=== PATIENT | male | born 1960 | race Hispanic/Latino ===

== ENCOUNTER 2017-11-26 14:25 | Inpatient (IN) | payer BC, MEDICAID, OTHER ==
[~2017-11-26] VITALS: Ht 170.2 cm; Wt 31.9 kg
[2017-11-26 15:36] LABS: BASOPHILS % (AUTO) 0.4 % (0.0-5.0); EOSINOPHILS % (AUTO) 0.7 % (0.0-8.0); HEMATOCRIT 41.2 % (42-54); LYMPHOCYTES % (AUTO) 15.8 % (21.0-51.0); MEAN CORPUSCULAR HEMOGLOBIN 30.4 pg (27.0-33.0); MEAN CORPUSCULAR HGB CONC 34.2 g/dL (32.0-36.0); MEAN CORPUSCULAR VOLUME 88.9 fL (79-99); MONOCYTES % (AUTO) 7.4 % (3.0-13.0); NEUTROPHILS % (AUTO) 75.7 % (40.0-77.0); PLATELET COUNT (AUTO) 423 K/uL (130-400); RED BLOOD CELL COUNT(AUTO) 4.64 MIL/uL (4.50-6.20); RED CELL DISTRIBUTION WIDTH 13.8 % (11.0-15.5); WHITE BLOOD COUNT (AUTO) 12.3 K/uL (4.8-10.8)
[2017-11-26 15:48] LABS: CREATININE 0.7 mg/dL (0.5-1.5); POTASSIUM 3.2 mmol/L (3.5-5.1)
[2017-11-26 15:53] LABS: ALBUMIN 3.3 g/dL (3.5-5.0); BILIRUBIN,TOTAL 0.8 mg/dL (0.2-1.0); INR 1.02 (0.85-1.15); PARTIAL THROMBOPLASTIN TIME 33.6 SEC (26.3-35.5); PROTHROMBIN TIME 10.7 SEC (9.6-11.6); TOTAL PROTEIN, SERUM 8.1 g/dL (6.0-8.3)
[2017-11-26] MEDS ORDERED: SODIUM CHLORIDE 0.9% 1000ML 1,000 ML IV ONE (16:06)
[2017-11-26] MEDS ORDERED: ISOVUE-370 50ML VIAL IV ONE (16:50)
[2017-11-26] MEDS ORDERED: AZITHROMYCIN 500MG+NS 250ML 250 ML IV ONE (16:53)
[2017-11-26] MEDS ORDERED: CEFTRIAXONE SODIUM 1 GM ONE (16:53)
[2017-11-26] MEDS ORDERED: IPRATROPIUM/ALBUTEROL SULFATE 3 ML SOLUTION IH ONE (16:58)
[2017-11-26 21:00] VITALS: BP 137/78
[2017-11-26] MEDS: IPRATROPIUM/ALBUTEROL SULFATE 3 ML SOLUTION IH SCH (23:20)
[2017-11-27] VITALS: BP 131/78
[2017-11-27] MEDS ORDERED: ACETAMINOPHEN 325 MG TAB PO PRN (02:00)
[2017-11-27] MEDS ORDERED: ONDANSETRON HCL 4 MG/2 ML VIAL IV PRN (02:00)
[2017-11-27] MEDS ORDERED: LIDOCAINE HCL-MPF 1% 2ML VIAL IVP PRN (02:15)
[2017-11-27] MEDS ORDERED: POTASSIUM CHLORIDE 20MEQ/100ML 100 ML IV PRN (02:15)
[2017-11-27] MEDS ORDERED: POTASSIUM CHLORIDE 10% ELIXIR 20 MEQ/15 ML UDCUP PO PRN (02:15)
[2017-11-27 04:00] VITALS: BP 127/77
[2017-11-27 04:56] LABS: HEMATOCRIT 36.5 % (42-54); MEAN CORPUSCULAR HEMOGLOBIN 31.1 pg (27.0-33.0); MEAN CORPUSCULAR VOLUME 88.9 fL (79-99); PLATELET COUNT (AUTO) 386 K/uL (130-400); RED BLOOD CELL COUNT(AUTO) 4.11 MIL/uL (4.50-6.20); RED CELL DISTRIBUTION WIDTH 13.5 % (11.0-15.5); WHITE BLOOD COUNT (AUTO) 11.9 K/uL (4.8-10.8)
[2017-11-27 05:10] LABS: CREATININE 0.7 mg/dL (0.5-1.5); POTASSIUM 3.3 mmol/L (3.5-5.1)
[2017-11-27 05:22] LABS: EOSINOPHILS % (MANUAL) 1 % (1-6); LYMPHOCYTES % (MANUAL) 18 % (22-44); MAN.DIFF COMMENT-IMPRESSION MANUAL DIFFERENTIAL; MONOCYTES % (MANUAL) 2 % (2-9); PLATELET MORPHOLOGY COMMENT ADEQUATE; SEGMENTED NEUTROPHILS % 79 % (40-70)
[2017-11-27] MEDS: POTASSIUM CHLORIDE 20 MEQ ERTAB PO PRN ×3 (05:59→14:33)
[2017-11-27] MEDS: IPRATROPIUM/ALBUTEROL SULFATE 3 ML SOLUTION IH SCH ×3 (06:06→18:31)
[2017-11-27 07:30] VITALS: BP 137/82
[2017-11-27] MEDS: FAMOTIDINE 20MG TAB 20 MG TAB PO SCH ×2 (09:33→20:42)
[2017-11-27] MEDS: PREDNISONE 20 MG TABLET PO SCH (09:36)
[2017-11-27 11:00] VITALS: BP 135/77
[2017-11-27] MEDS: NICOTINE 14 MG/ 24 HR PATCH TD SCH (14:33)
[2017-11-27 16:00] VITALS: BP 127/75
[2017-11-27] MEDS: CEFTRIAXONE SODIUM 1 GM IVP SCH (17:02)
[2017-11-27] MEDS: AZITHROMYCIN 500MG+NS 250ML 250 ML IV SCH (17:03)
[2017-11-27 20:31] VITALS: BP 110/63
[2017-11-27] MEDS ORDERED: ZOLPIDEM TARTRATE 5 MG TAB ONE (20:41)
[2017-11-28 00:05] VITALS: BP 114/73
[2017-11-28] MEDS: IPRATROPIUM/ALBUTEROL SULFATE 3 ML SOLUTION IH SCH ×4 (00:56→16:58)
[2017-11-28 04:37] VITALS: BP 112/77
[2017-11-28] MEDS: POTASSIUM CHLORIDE 20 MEQ ERTAB PO PRN ×3 (05:33→16:44)
[2017-11-28 07:46] VITALS: BP 114/75
[2017-11-28] MEDS: FAMOTIDINE 20MG TAB 20 MG TAB PO SCH ×2 (08:06→19:35)
[2017-11-28] MEDS: PREDNISONE 20 MG TABLET PO SCH (08:07)
[2017-11-28] MEDS: NICOTINE 14 MG/ 24 HR PATCH TD SCH (09:12)
[2017-11-28 12:00] VITALS: BP 135/78
[2017-11-28 16:00] VITALS: BP 119/73
[2017-11-28] MEDS: AZITHROMYCIN 500MG+NS 250ML 250 ML IV SCH (16:43)
[2017-11-28] MEDS: CEFTRIAXONE SODIUM 1 GM IVP SCH (16:44)
[2017-11-28 20:34] VITALS: BP 113/70
[2017-11-28] MEDS: ZOLPIDEM TARTRATE 5 MG TAB PO PRN (20:54)
[2017-11-28] MEDS: BUDESONIDE 0.5 MG/2 ML INH IH SCH (22:09)
[2017-11-29] VITALS (7 sets, daily range): BP systolic 98–129; BP diastolic 58–81
[2017-11-29] MEDS: IPRATROPIUM/ALBUTEROL SULFATE 3 ML SOLUTION IH SCH ×5 (00:04→23:00)
[2017-11-29 05:10] LABS: HEMATOCRIT 34.8 % (42-54); MEAN CORPUSCULAR HEMOGLOBIN 30.9 pg (27.0-33.0); MEAN CORPUSCULAR HGB CONC 34.6 g/dL (32.0-36.0); MEAN CORPUSCULAR VOLUME 89.3 fL (79-99); PLATELET COUNT (AUTO) 434 K/uL (130-400); RED CELL DISTRIBUTION WIDTH 13.7 % (11.0-15.5)
[2017-11-29] MEDS: BUDESONIDE 0.5 MG/2 ML INH IH SCH ×2 (05:22→17:59)
[2017-11-29 05:26] LABS: CREATININE 0.8 mg/dL (0.5-1.5); PHOSPHORUS 3.7 mg/dL (2.5-4.9); POTASSIUM 4.1 mmol/L (3.5-5.1)
[2017-11-29] MEDS: PREDNISONE 20 MG TABLET PO SCH (08:25)
[2017-11-29] MEDS: FAMOTIDINE 20MG TAB 20 MG TAB PO SCH ×2 (08:25→21:31)
[2017-11-29] MEDS: NICOTINE 14 MG/ 24 HR PATCH TD SCH (08:25)
[2017-11-29] MEDS ORDERED: MAGNESIUM 2GM PREMIX 50ML 50 ML IV SCH (14:00)
[2017-11-29] MEDS: CEFTRIAXONE SODIUM 1 GM IVP SCH (17:13)
[2017-11-29] MEDS: AZITHROMYCIN 500MG+NS 250ML 250 ML IV SCH (17:13)
[2017-11-29] MEDS: ZOLPIDEM TARTRATE 5 MG TAB PO PRN (21:31)
[2017-11-30] VITALS (14 sets, daily range): BP systolic 106–141; BP diastolic 65–96
[2017-11-30] MEDS: IPRATROPIUM/ALBUTEROL SULFATE 3 ML SOLUTION IH SCH ×3 (05:52→19:23)
[2017-11-30] MEDS: BUDESONIDE 0.5 MG/2 ML INH IH SCH ×2 (06:04→19:40)
[2017-11-30 07:51] LABS: BASOPHILS % (AUTO) 0.7 % (0.0-5.0); EOSINOPHILS % (AUTO) 0.4 % (0.0-8.0); HEMATOCRIT 36.4 % (42-54); LYMPHOCYTES % (AUTO) 21.4 % (21.0-51.0); MEAN CORPUSCULAR HGB CONC 34.6 g/dL (32.0-36.0); MEAN CORPUSCULAR VOLUME 89.5 fL (79-99); MONOCYTES % (AUTO) 7.1 % (3.0-13.0); NEUTROPHILS % (AUTO) 70.4 % (40.0-77.0); PLATELET COUNT (AUTO) 446 K/uL (130-400); RED BLOOD CELL COUNT(AUTO) 4.07 MIL/uL (4.50-6.20); RED CELL DISTRIBUTION WIDTH 13.8 % (11.0-15.5); WHITE BLOOD COUNT (AUTO) 15.8 K/uL (4.8-10.8)
[2017-11-30 08:04] LABS: INR 1.03 (0.85-1.15); PARTIAL THROMBOPLASTIN TIME 28.8 SEC (26.3-35.5); PROTHROMBIN TIME 10.8 SEC (9.6-11.6)
[2017-11-30 08:59] LABS: ALBUMIN 2.8 g/dL (3.5-5.0); BILIRUBIN,TOTAL 0.9 mg/dL (0.2-1.0); CREATININE 0.7 mg/dL (0.5-1.5); MAGNESIUM 2.1 mg/dL (1.80-2.40); POTASSIUM 3.5 mmol/L (3.5-5.1); TOTAL PROTEIN, SERUM 7.4 g/dL (6.0-8.3)
[2017-11-30] MEDS: PREDNISONE 20 MG TABLET PO SCH (10:06)
[2017-11-30] MEDS: FAMOTIDINE 20MG TAB 20 MG TAB PO SCH ×2 (10:06→20:13)
[2017-11-30] MEDS: NICOTINE 14 MG/ 24 HR PATCH TD SCH (10:07)
[2017-11-30] MEDS ORDERED: FENTANYL CITRATE PF 50 MCG/1 ML 2ML VIAL ONE (11:11)
[2017-11-30] MEDS ORDERED: MIDAZOLAM HCL 1 MG/ML 2ML VIAL ONE (11:11)
[2017-11-30] MEDS: CEFTRIAXONE SODIUM 1 GM IVP SCH (15:57)
[2017-11-30] MEDS: AZITHROMYCIN 500MG+NS 250ML 250 ML IV SCH (15:57)
[2017-11-30] MEDS: ZOLPIDEM TARTRATE 5 MG TAB PO PRN (20:15)
[2017-12-01] MEDS: IPRATROPIUM/ALBUTEROL SULFATE 3 ML SOLUTION IH SCH ×3 (00:09→10:52)
[2017-12-01 04:05] VITALS: BP 116/74
[2017-12-01 04:49] LABS: MEAN CORPUSCULAR HEMOGLOBIN 31.2 pg (27.0-33.0); MEAN CORPUSCULAR HGB CONC 34.6 g/dL (32.0-36.0); MEAN CORPUSCULAR VOLUME 90.1 fL (79-99); PLATELET COUNT (AUTO) 462 K/uL (130-400); RED BLOOD CELL COUNT(AUTO) 3.89 MIL/uL (4.50-6.20); RED CELL DISTRIBUTION WIDTH 13.9 % (11.0-15.5); WHITE BLOOD COUNT (AUTO) 16.8 K/uL (4.8-10.8)
[2017-12-01 05:01] LABS: CREATININE 0.8 mg/dL (0.5-1.5)
[2017-12-01 07:00] VITALS: BP 124/77
[2017-12-01] MEDS: BUDESONIDE 0.5 MG/2 ML INH IH SCH (07:12)
[2017-12-01] MEDS: FAMOTIDINE 20MG TAB 20 MG TAB PO SCH (10:31)
[2017-12-01] MEDS: NICOTINE 14 MG/ 24 HR PATCH TD SCH (10:33)
[2017-12-01] MEDS: PREDNISONE 20 MG TABLET PO SCH (10:41)
[2017-12-01 12:00] VITALS: BP_SYST 122; BP_SYST 172; BP_DIAS 75; BP_DIAS 88
[2017-12-01] MEDS ORDERED: BUDE0.5A3 IH (13:16)
[2017-12-01] MEDS ORDERED: LEVO500T2 PO (13:16)
[2017-12-01] MEDS ORDERED: ALBU8.5H8 IH (15:21)
[2017-12-01] MEDS ORDERED: TIOT18CA3 IH (15:21)
[2017-12-01] MEDS: CEFTRIAXONE SODIUM 1 GM IVP SCH (16:56)
[2017-12-01] MEDS: AZITHROMYCIN 500MG+NS 250ML 250 ML IV SCH (16:57)
== END 2017-12-01 17:10 | disposition home or self-care (01) | DRG 180 ==
LOC: EDH 14:25 → EDHIP 14:26 → 4AH 20:52 → 3DH 11-29 15:26 → 3AH 11-29 15:49
PROVIDERS: ADMIT Family Medicine; ATTEND Family Medicine
PROC: 0BBK3ZX Excision of Right Lung, Percutaneous Approach, Diagnostic (ICD-10-PCS; principal; 2017-11-26)
DX: C34.11 Malignant neoplasm of upper lobe, right bronchus or lung (principal); J18.9 Pneumonia, unspecified organism; J44.0 Chronic obstructive pulmonary disease with (acute) lower respiratory infection; R04.2 Hemoptysis; J44.1 Chronic obstructive pulmonary disease with (acute) exacerbation; D72.829 Elevated white blood cell count, unspecified; E87.6 Hypokalemia; J44.9 Chronic obstructive pulmonary disease, unspecified; F10.20 Alcohol dependence, uncomplicated; F17.210 Nicotine dependence, cigarettes, uncomplicated; Z88.0 Allergy status to penicillin; Z93.3 Colostomy status; Z28.21 Immunization not carried out because of patient refusal
CPT/HCPCS: 32405; 36415; 71045; 71046; 71260; 77012; 80048; 80053; 82948; 83605; 83735; 84100; 84132; 85025; 85027; 85610; 85730; 86480; 87040; 87804; 88305; 94640; 94664; 94760; A4218; J0456; J0696; J2250; J3010; J3475; J7030; Q9967

== ENCOUNTER 2017-12-21 08:27 | Observation (INO) | payer MEDICAID, OTHER ==
[2017-12-21] VITALS (9 sets, daily range): BP systolic 119–155; BP diastolic 75–93
[~2017-12-21] VITALS: Ht 175.3 cm; Wt 68.3 kg
[~2017-12-21 08:27] MED LIST: ALBU8.5H8 IH; BUDE0.5A3 IH; LEVO500T2 PO; TIOT18CA3 IH
[2017-12-21 09:04] LABS: EOSINOPHILS % (AUTO) 1.9 % (0.0-8.0); LYMPHOCYTES % (AUTO) 17.3 % (21.0-51.0); MEAN CORPUSCULAR HEMOGLOBIN 31.5 pg (27.0-33.0); MEAN CORPUSCULAR HGB CONC 34.8 g/dL (32.0-36.0); MEAN CORPUSCULAR VOLUME 90.4 fL (79-99); NEUTROPHILS % (AUTO) 70.8 % (40.0-77.0); PLATELET COUNT (AUTO) 437 K/uL (130-400); RED BLOOD CELL COUNT(AUTO) 3.88 MIL/uL (4.50-6.20); WHITE BLOOD COUNT (AUTO) 8.4 K/uL (4.8-10.8)
[2017-12-21 09:19] LABS: CREATININE 0.8 mg/dL (0.5-1.5); POTASSIUM 3.3 mmol/L (3.5-5.1)
[2017-12-21 09:21] LABS: INR 1.03 (0.85-1.15); PARTIAL THROMBOPLASTIN TIME 32.1 SEC (26.3-35.5); PROTHROMBIN TIME 10.8 SEC (9.6-11.6)
[2017-12-21 09:25] LABS: ALBUMIN 2.8 g/dL (3.5-5.0); BILIRUBIN,TOTAL 0.5 mg/dL (0.2-1.0); TOTAL PROTEIN, SERUM 7.5 g/dL (6.0-8.3)
[2017-12-21] MEDS ORDERED: FENTANYL CITRATE PF 50 MCG/1 ML 2ML VIAL ONE (14:26)
[2017-12-21] MEDS ORDERED: TIOT18CA3 IH (15:11)
[2017-12-21] MEDS ORDERED: BUDE0.5A3 IH (15:11)
== END 2017-12-21 18:24 | disposition home or self-care (01) ==
LOC: EDH 08:27 → EDHIP 08:28 → 3AH 14:58
PROVIDERS: ADMIT Internal Medicine Hematology & Oncology; ATTEND Internal Medicine Hematology & Oncology
DX: C34.90 Malignant neoplasm of unspecified part of unspecified bronchus or lung (principal); J44.9 Chronic obstructive pulmonary disease, unspecified; F17.210 Nicotine dependence, cigarettes, uncomplicated; F10.20 Alcohol dependence, uncomplicated; Z79.899 Other long term (current) drug therapy
CPT/HCPCS: 32405; 36415; 71045; 77012; 80053; 85025; 85610; 85730; 88305; 99285; G0378 ×10; J3010

== ENCOUNTER 2017-12-21 22:52 | Inpatient (IN) | payer MEDICAID, OTHER ==
[~2017-12-21] VITALS: Ht 175.3 cm; Wt 70.4 kg
[2017-12-21 23:57] LABS: EOSINOPHILS % (AUTO) 2.3 % (0.0-8.0); LYMPHOCYTES % (AUTO) 15.1 % (21.0-51.0); MEAN CORPUSCULAR HEMOGLOBIN 30.9 pg (27.0-33.0); MEAN CORPUSCULAR HGB CONC 34.3 g/dL (32.0-36.0); MEAN CORPUSCULAR VOLUME 89.9 fL (79-99); MONOCYTES % (AUTO) 8.5 % (3.0-13.0); NEUTROPHILS % (AUTO) 73.1 % (40.0-77.0); PLATELET COUNT (AUTO) 429 K/uL (130-400); RED BLOOD CELL COUNT(AUTO) 4.01 MIL/uL (4.50-6.20); RED CELL DISTRIBUTION WIDTH 13.8 % (11.0-15.5); WHITE BLOOD COUNT (AUTO) 9.8 K/uL (4.8-10.8)
[2017-12-22 00:09] LABS: INR 1.03 (0.85-1.15); PARTIAL THROMBOPLASTIN TIME 32.6 SEC (26.3-35.5); PROTHROMBIN TIME 10.8 SEC (9.6-11.6)
[2017-12-22 00:22] LABS: B-TYPE NATRIURETIC PEPTIDE 106 pg/mL (0-100); CARBON DIOXIDE 26 mmol/L (21-32); CHLORIDE 103 mmol/L (101-111); CREATININE 0.8 mg/dL (0.5-1.5); GLOMERULAR FILTR. RATE CALC 106 mL/min (>60); GLUCOSE,RANDOM 122 mg/dL (70-105); POTASSIUM 3.3 mmol/L (3.5-5.1); SODIUM SERUM 141 mmol/L (136-145); UREA NITROGEN, BLOOD 13 mg/dL (7-18)
[2017-12-22 00:46] LABS: ALANINE AMINOTRANSFERASE 61 U/L (12-78); ALBUMIN 2.9 g/dL (3.5-5.0); ASPARTATE AMINOTRANSFERASE 39 U/L (10-37); BILIRUBIN,TOTAL 0.4 mg/dL (0.2-1.0); CREATINE KINASE MB < 0.5 ng/mL (0.5-3.6); CREATINE KINASE, TOTAL 40 U/L (21-232); MYOGLOBIN 24 ng/mL (10-92)
[2017-12-22] MEDS: ALBUTEROL SULFATE 0.083% 2.5 MG/3 ML INH IH SCH ×6 (01:40→22:20)
[2017-12-22] MEDS ORDERED: LIDOCAINE HCL 1% 20 ML VIAL ONE (06:15)
[2017-12-22] MEDS ORDERED: FENTANYL CITRATE PF 50 MCG/1 ML 2ML VIAL ONE ×2 (06:15→06:31)
[2017-12-22] MEDS ORDERED: MORPHINE SULFATE 2 MG/ML 1ML SYG ONE ×3 (09:11→16:42)
[2017-12-22] MEDS ORDERED: IPRATROPIUM/ALBUTEROL SULFATE 3 ML SOLUTION IH ONE ×2 (10:12→13:09)
[2017-12-22] MEDS ORDERED: ALBUTEROL SULFATE 0.083% 2.5 MG/3 ML INH IH ONE ×2 (10:13→13:14)
[2017-12-22 18:23] VITALS: BP 125/95
[2017-12-22] MEDS: MORPHINE SULFATE 2 MG/ML 1ML SYG IVP PRN ×2 (18:58→23:09)
[2017-12-22 20:00] VITALS: BP 132/87
[2017-12-22 23:46] VITALS: BP 133/84
[2017-12-23] MEDS: ALBUTEROL SULFATE 0.083% 2.5 MG/3 ML INH IH SCH ×6 (01:53→22:41)
[2017-12-23] MEDS: MORPHINE SULFATE 2 MG/ML 1ML SYG IVP PRN ×5 (03:09→23:58)
[2017-12-23 03:33] VITALS: BP 133/80
[2017-12-23 08:01] VITALS: BP 118/76
[2017-12-23 11:49] VITALS: BP 113/73
[2017-12-23] MEDS ORDERED: LIDOCAINE HCL-MPF 1% 2ML VIAL IVP PRN (16:15)
[2017-12-23] MEDS ORDERED: POTASSIUM CHLORIDE 10% ELIXIR 20 MEQ/15 ML UDCUP PO PRN (16:15)
[2017-12-23] MEDS ORDERED: POTASSIUM CHLORIDE 20MEQ/100ML 100 ML IV PRN (16:15)
[2017-12-23] MEDS ORDERED: POTASSIUM CHLORIDE 20 MEQ ERTAB PO PRN (16:15)
[2017-12-23 16:50] LABS: CREATININE 0.7 mg/dL (0.5-1.5); POTASSIUM 3.8 mmol/L (3.5-5.1)
[2017-12-23 17:08] VITALS: BP 106/68
[2017-12-23] MEDS ORDERED: IPRATROPIUM 0.5 MG/2.5 ML INH IH SCH (18:00)
[2017-12-23] MEDS ORDERED: BUDESONIDE 0.5 MG/2 ML INH IH ONE (19:02)
[2017-12-23] MEDS: BUDESONIDE 0.5 MG/2 ML INH IH SCH (19:05)
[2017-12-23 19:20] VITALS: BP 118/75
[2017-12-23 23:24] VITALS: BP 107/68
[2017-12-24] MEDS: ALBUTEROL SULFATE 0.083% 2.5 MG/3 ML INH IH SCH (02:20)
[2017-12-24 03:20] VITALS: BP 115/78
[2017-12-24] MEDS: MORPHINE SULFATE 2 MG/ML 1ML SYG IVP PRN ×5 (04:07→21:44)
[2017-12-24 05:25] LABS: HEMATOCRIT 34.1 % (42-54); MEAN CORPUSCULAR HEMOGLOBIN 31.1 pg (27.0-33.0); MEAN CORPUSCULAR HGB CONC 34.8 g/dL (32.0-36.0); MEAN CORPUSCULAR VOLUME 89.5 fL (79-99); PLATELET COUNT (AUTO) 449 K/uL (130-400); RED BLOOD CELL COUNT(AUTO) 3.81 MIL/uL (4.50-6.20); RED CELL DISTRIBUTION WIDTH 13.9 % (11.0-15.5); WHITE BLOOD COUNT (AUTO) 10.8 K/uL (4.8-10.8)
[2017-12-24 05:42] LABS: CREATININE 0.8 mg/dL (0.5-1.5); MAGNESIUM 1.9 mg/dL (1.80-2.40); PHOSPHORUS 3.9 mg/dL (2.5-4.9); POTASSIUM 3.6 mmol/L (3.5-5.1)
[2017-12-24] MEDS: IPRATROPIUM/ALBUTEROL SULFATE 3 ML SOLUTION IH SCH ×5 (05:57→22:21)
[2017-12-24] MEDS: BUDESONIDE 0.5 MG/2 ML INH IH SCH ×2 (06:09→18:55)
[2017-12-24 08:00] VITALS: BP 100/62
[2017-12-24 12:00] VITALS: BP 110/67
[2017-12-24 16:00] VITALS: BP 110/71
[2017-12-24 19:45] VITALS: BP 126/79
[2017-12-24 23:30] VITALS: BP 110/66
[2017-12-25] MEDS: MORPHINE SULFATE 2 MG/ML 1ML SYG IVP PRN ×5 (01:32→21:43)
[2017-12-25] MEDS: IPRATROPIUM/ALBUTEROL SULFATE 3 ML SOLUTION IH SCH ×6 (02:04→22:06)
[2017-12-25 03:40] VITALS: BP 112/69
[2017-12-25] MEDS: BUDESONIDE 0.5 MG/2 ML INH IH SCH (06:16)
[2017-12-25 07:00] VITALS: BP 132/69
[2017-12-25 11:00] VITALS: BP 110/67
[2017-12-25 16:00] VITALS: BP 114/67
[2017-12-25 19:40] VITALS: BP 111/69
[2017-12-26 00:20] VITALS: BP 109/69
[2017-12-26] MEDS: MORPHINE SULFATE 2 MG/ML 1ML SYG IVP PRN (02:20)
[2017-12-26 04:05] VITALS: BP 99/64
[2017-12-26] MEDS: IPRATROPIUM/ALBUTEROL SULFATE 3 ML SOLUTION IH SCH ×3 (06:41→13:57)
[2017-12-26] MEDS: BUDESONIDE 0.5 MG/2 ML INH IH SCH (06:57)
[2017-12-26 07:00] VITALS: BP 106/59
[2017-12-26 11:00] VITALS: BP 113/61
== END 2017-12-26 15:00 | disposition home or self-care (01) | DRG 200 ==
LOC: EDH 22:52 → OBSVTOIN 22:53 → EDHIP 22:53 → 4CH 12-22 17:52
PROVIDERS: ADMIT Internal Medicine Hematology & Oncology; ATTEND Internal Medicine Hematology & Oncology
PROC: 0W9930Z Drainage of Right Pleural Cavity with Drainage Device, Percutaneous Approach (ICD-10-PCS; principal; 2017-12-21)
DX: J95.811 Postprocedural pneumothorax (principal); R64 Cachexia; C34.90 Malignant neoplasm of unspecified part of unspecified bronchus or lung; F10.20 Alcohol dependence, uncomplicated; J44.9 Chronic obstructive pulmonary disease, unspecified; Z88.0 Allergy status to penicillin; Z87.891 Personal history of nicotine dependence
CPT/HCPCS: 32405; 36415; 71045; 71046; 77012; 80048; 80053; 82550; 82553; 83735; 83874; 83880; 84100; 84132; 84484; 85025; 85027; 85610; 85730; 88305; 93005; 94640; 94664; G0378; J3010